=== PATIENT | female | born 1960 | race Caucasian/White ===

== ENCOUNTER 2019-10-26 10:58 | Observation (INO) | payer MEDICARE, SELFPAY ==
[2019-10-26] VITALS (11 sets, daily range): BP systolic 95–115; BP diastolic 45–60; PULSE 48–70; RESP 16; TEMP 36.4–37.1; O2SAT 93–100; BMI 25.0; BMI 28.7
--- NOTE | ~2019-10-26 | XR_ITS ---
EXAMINATION: XR chest 2V DATE: 10/26/2019 11:29 INDICATION: Transient alteration of awareness TECHNIQUE: AP and lateral views of the chest are obtained. COMPARISON: None available FINDINGS: The lungs are free of acute opacities. There is no pleural effusion or pneumothorax. The ca rdiomediastinal silhouette is normal. There is thoracic dextroscoliosis. Spinal fixation rods are not ed. Cholecystectomy clips are present in the right upper quadrant. IMPRESSION: 1. No acute cardiopulmonary abnormality. Reviewed, dictated and finalized at location A. INTELLIGENCE OFFICER
--- NOTE | ~2019-10-26 | CT_ITS ---
EXAMINATION: CT brain wo con EXAM DATE: 10/26/2019 11:47 INDICATION: Syncope. Somnolence. TECHNIQUE: Spiral CT of the head was performed without contrast. Axial, coronal and sagittal images were reviewed. The dose-length product (DLP) for this examination was 529.67 mGy-cm. The exposure w as tailored according to patient size, and iterative reconstruction (ASIR) was used as additional dos e reduction technique. Comparison is made to prior examination from 08/06/2019. FINDINGS: There is no acute intraparenchymal hemorrhage. No evidence of intraparenchymal brain mass lesion. No evidence of acute infarction. There is no mass effect or midline shift. The ventricles are normal in size. There are no extra-axial collections. There are no acute calvarial fractures. T he orbits are unremarkable. Soft tissue is unremarkable. The visualized sinuses and mastoid air taylor ls are well aerated. IMPRESSION: 1. Unremarkable head CT examination. Reviewed, dictated and finalized at location B. ERIOLOGIST FISHERY
--- NOTE | ~2019-10-26 | MR_ITS ---
EXAMINATION: MR brain/brain stem wo/w con EXAM DATE: 10/27/2019 12:58 INDICATION: Syncope. TECHNIQUE: Magnetic resonance imaging (MRI) of the brain/brain stem obtained without contrast. Sagit anny T1, axial diffusion, gradient echo (T2*), T1, T2, FLAIR sequences obtained. Patient was then inj ected with 10 cc intravenous Multihance contrast. Axial and coronal postcontrast T1 weighted sequence s obtained. There is no prior study for comparison. FINDINGS: There are no areas of restricted diffusion to suggest acute infarction. There is no acute hemorrhage seen on the T2*, a hemosiderin sensitive sequence. No intraparenchymal brain mass. The ve ntricles are normal in size. There are no extra-axial collections. Flow voids are seen in the cereb ral arteries on the T2-weighted sequences consistent with their expected patency. The orbits are unr emarkable. Soft tissue is unremarkable. There are no areas of abnormal enhancement on the postcont rast images. IMPRESSION: 1. Normal brain MRI examination. Reviewed, dictated and finalized at location B. OFILM CLERK
--- NOTE | 2019-10-26 11:05 | ECG_ITS ---
Measurements Intervals [place] Rate: 46 P: 29 MN: 172 QRS: 2 QRSD: 86 T: 52 QT: 452 QTc: 397 Interpretive Statements SINUS BRADYCARDIA INCOMPLETE RIGHT BUNDLE BRANCH BLOCK BASELINE ARTIFACT- I, II ABNORMAL ECG Electronically Signed On 10-26-2019 11:14:32 SWATCH CHECKER by Eleazar Hayes D.O.
[2019-10-26 11:25] LABS: Glucose Point of Care 117 (65-105)
[2019-10-26 11:29] LABS: Basophils Absolute Auto 0.1 K/mm3 (0.0-0.1); Basophils Percent Auto 1.2 % (0.2-1.2); Eosinophils Absolute Auto 0.1 K/mm3 (0-0.3); Eosinophils Percent Auto 0.8 % (0-4.4); Hematocrit 39.6 % (37.0-47.0); Immature Granulocyte Absolute 0.01 K/mm3 (0.00-0.031); Immature Granulocyte Percent A 0.2 % (0-0.5); Lymphocytes Absolute Auto 3.68 K/mm3 (0.9-3.2); Mean Corpuscular HGB Conc 32.8 g/dl (32-36); Mean Corpuscular Hemoglobin 32.7 pg (26-34); Mean Corpuscular Volume 99.5 fl (80-100); Mean Platelet Volume 9.5 fl (7.4-10.4); Monocytes Absolute Auto 0.5 K/mm3 (0.1-0.6); Monocytes Percent Auto 7.7 % (2.6-8.5); Neutrophils Absolute Auto 1.7 K/mm3 (1.3-6.7); Neutrophils Percent Auto 28.1 % (45.5-73.1); Platelet Count Result 345 k/mm3 (150-375); Red Blood Count 3.98 M/mm3 (4.2-5.4); Red Cell Distribution Width 17.8 % (11.5-14.5); White Blood Count 5.9 K/mm3 (4.5-10.0)
[2019-10-26 11:39] LABS: Partial Thromboplastin Time 24.9 SECONDS (22.3-36.8); Prothrombin Time 12.7 Seconds (11.1-14.7)
[2019-10-26] MEDS: LACTATED RINGERS 1,000 ML 999 ML IV CONT (11:39)
[2019-10-26 11:40] LABS: Lactic Acid Reflex 1.2 mmol/L (0.7-2.1)
[2019-10-26 11:43] LABS: Alanine Aminotransferase 66 U/L (4-35); Alkaline Phosphatase 82 U/L (38-126); Aspartate Amino Transferase 55 U/L (14-36); Bilirubin,Total 0.4 mg/dL (0.2-1.3); Blood Urea Nitrogen 19 mg/dL (7-17); CRP 0.6 mg/dL (<1.0); Calcium 9.2 mg/dL (8.4-10.2); Carbon Dioxide 23 mmol/L (22-30); Chloride 103 mmol/L (98-107); Estimated Glomerular Filt Rate > 60; Glucose 128 mg/dL (65-105); Lipase 63 U/L (23-300); Potassium 3.8 mmol/L (3.4-5.0); Sodium 139 mmol/L (137-145)
--- NOTE | 2019-10-26 11:49 | ED.AMS ---
HPI - Altered Mental Status General Chief Complaint: Syncope Stated Complaint: syncope Time Seen by Provider: 10/26/19 11:01 Source: patient Mode of arrival: ambulatory Limitations: no limitations History of Present Illness HPI narrative: Patient is a 59-year-old female who presents with family for evaluation of syncopal episode that occurred just prior to arrival patient was sitting when she became very pale and noted that she did not feel well and sustained a syncopal episode patient's POA notes that she has had several syncopal episodes in the recent past has had Holter monitoring evaluation with no attributable cause patient on arrival is resting comfortably lying in the position in no distress patient had short episode of syncope with twitching. Patient with history of Down syndrome hypothyroidism and is a limited historian due to clinical condition Related Data Home Medications Medication Instructions Recorded Confirmed alendronate 70 mg tablet 70 mg PO WEEKLY 07/17/19 09/07/19 calcium carbonate 600 mg(1,500 1 tablet PO DAILY 07/17/19 09/07/19 mg)-vitamin D3 800 unit chewable tablet fluoxetine 10 mg capsule 10 mg PO HS 07/17/19 09/07/19 Alive 1 tablet PO DAILY 09/01/19 09/07/19 ferrous sulfate [iron] 325 mg PO DAILY 09/01/19 09/07/19 Allergies Allergy/AdvReac Type Severity Reaction Status Date / Time Penicillins Allergy Severe RASH Verified 09/18/19 13:31 CHILD--NEVER GIVEN AGAIN amoxicillin AdvReac Unknown Upset Verified 09/18/19 13:31 Stomach Review of Systems Review of Systems: ROS unobtainable: unobtainable due to mental condition PMFSH Past Medical History Medical History Anemia Depression Down syndrome, unspecified Hypothyroidism, unspecified Pterygium of right eye 1997 Scoliosis Surgical History Surgical History History of back surgery Rods in spine Hx of cholecystectomy 2009 Family History Family History Father Hypertension Parkinson disease Mother Hypertension Alzheimer disease Skin cancer Other Diabetes mellitus Social History Social History Smoking status: Never smoker Alcohol intake: never Substance use: never Gender identity (if verbalized by the patient): Female Spiritual care concerns: Yes Agree to blood products: Yes Exam Narrative: Exam Narrative: GENERAL: Well-appearing, well-nourished, and in no acute distress. HEAD: Normocephalic, small contusion to the forehead EYES: PERRLA and EOMI. ENT: Nares clear, no rhinorrhea or epistaxis. Mucous membranes moist. Oropharynx without tonsillar hypertrophy exudate or other lesions. NECK: Supple. No adenopathy or masses. CHEST: Clear to auscultation. No respiratory distress. No wheezes rales or rhonchi HEART: Regular rate and rhythm. No murmur heard. Normal peripheral pulses. ABDOMEN: Soft, nontender, nondistended EXTREMITIES: Normal range of motion. No edema. SKIN: Warm, dry, no rash. NEURO: No focal deficits. Alert and oriented to person PSYCH: Normal mood and affect. Course Course Emergency Course: Patient in the room at this time resting comfortably aware of case findings treatment plan and diagnosis POA in the room as well who is also aware and agreeing to the plan for the patient to be observed in hospital overnight Consultations Consultation #1: Patient case discussed with hospitalist and primary care who agreed to observing the patient Date: 10/26/19 Vital Signs Vital signs: Vital Signs Temperature 97.5 F L 10/26/19 11:03 Pulse Rate 48 L 10/26/19 11:03 Respiratory Rate 16 10/26/19 11:03 Blood Pressure 101/50 L 10/26/19 11:03 Pulse Oximetry 98 10/26/19 11:03 Temperature 97.5 F L 10/26/19 11:03 Pulse Rate 70
[2019-10-26 11:51] LABS: Troponin I < 0.012 ng/mL (0.000-0.034)
[2019-10-26 11:52] LABS: Troponin I < 0.012 ng/mL (0.000-0.034)
[2019-10-26 13:03] LABS: Add Urine Microscopic? YES; Appearance Urine Clear (Clear); Bacteria Urine 1+ /hpf; Bilirubin Urine Negative (Negative); Blood Urine Negative (Negative); Color Urine Yellow (Yellow); Glucose Urine UA Negative (Negative); Ketones Urine Negative (Negative); Leukocyte Esterase Ur Trace LEU/UL (Negative); Mucus Urine Rare /lpf; Nitrate Urine Negative (Negative); Protein Urine Negative (Negative); Specific Grav Ur 1.031 (1.001-1.035); Squamous Epithelial Cell Urine Few /hpf (Few)
[2019-10-26 14:49] LABS: Troponin I < 0.012 ng/mL (0.000-0.034)
[2019-10-26] MEDS: LACTATED RINGERS 1,000 ML 125 ML IV CONT ×2 (15:24→22:07)
--- NOTE | 2019-10-26 15:41 | ADMGEN ---
This patient, Talia Fernandez, was admitted to [facility] Surg Room 325-01. Patient/family oriented to hospital policies and general routines including ID bracelet, bed and alarms, visiting hours, pain management, procedures, bathroom and other care routines, personal items, smoking policy, room service/diet, and visiting hours. Valuables list has been completed. Information on how to activate the Rapid Response Team has been discussed. Patient/Family are encouraged to report perceived risks to care and to ask questions if they do not understand what they are told or what they should do.
--- NOTE | 2019-10-26 17:06 | PM.IMHP ---
H&P: HPI History of Present Illness Chief complaint: syncope Narrative: Talia Fernandez is a 59 year old female Who has had multiple episodes of syncope. According to her sister she has had a syncopal episode at least every other week. The patient had been on a monitor at 1 time. The POA stated that the patient had been here and July and had a Holter monitor at that time. The patient lives with her power defense attorney which is her sister and [id number]. The patient stated that she did not hit her head this time but the incident occurred just prior to arrival to the emergency room. She was sitting when she bring him very pale and noted she did feel very well. The patient stated that her stomach was upset. She does have Down syndrome and is able to communicate with me. I did call her power defense attorney which is her sister to get information. Jessie is her power defense attorney. The patient stated that she can now smile she had a frown earlier today. I am assuming that she had a facial droop. However the sister did not notice this. The sister told me that the patient had dental work done yesterday and had numbing medicine to that area. They are not sure if this is what she was referring to. Her blood sugar was 128. Her pulse was down to 48. The patient stated that her stomach felt funny during this time as well. She could not exactly describe a but said it was upset. The patient was given IV Tylenol and IV fluids in the emergency room. Date of service 10/26/[address] was unremarkable as well. Review of Systems Review of Systems: Narrative: The patient denies any fever chills. She stated that her she had a frown earlier but now she is able to smile. She had some dental work performed yesterday and had numbing medicine to her lower jaw and was not sure if it was from that or something different. She is not complaining any deficits at this time. She stated her stomach was upset earlier. She does have a history of down syndrome. All systems reviewed & are unremarkable except as noted in HPI and below Constitutional: Constitutional: Reports as per HPI and Reports no additional constitutional complaints Eyes: Eyes: Reports as per HPI and Reports no additional eye complaints ENT: Reports system reviewed and no additional complaints, except as documented and Reports Normal hearing present Cardiovascular: Cardiovascular: Reports no additional cardiovascular complaints Respiratory: Respiratory: Reports as per HPI and Reports no additional respiratory complaints Gastrointestinal: Gastrointestinal: Reports as per HPI and Reports no additional gastrointestinal complaints Genitourinary: Genitourinary: Reports no additional female genitourinary complaints Musculoskeletal: Musculoskeletal: Reports no additional musculoskeletal complaints Integumentary/Breasts: Skin/Breast: Reports system reviewed and no additional complaints, except as docu Neurologic: Reports system reviewed and no additional complaints, except as documented and Reports Normal hearing present Psychiatric: Psychiatric: Reports no additional psychiatric complaints and Reports as per HPI Endocrine: Endocrine: Reports no additional endocrine complaints Hematologic/Lymphatic: Hematologic/Lymphatic: Reports no additional hematologic/lymphatic complaints Allergic/Immunologic: Allergic/Immunologic: Reports no additional allergic/immunologic complaints [facility] Past Medical History Medical History (Updated 10/26/19 @ 17:58 by Kathe Franklin NP) Anemia Benign uterine neoplasm extracted Depression Down syndrome, unspecified Hypothyroidism, unspecified Pterygium of right eye 1997 Scoliosis Surgical History Surgical History History of back surgery Rods in spine Hx of cholecystectomy 2009 Family History Family History Father Hypertension Parkinson diseas
[2019-10-26 17:47] LABS: Troponin I < 0.012 ng/mL (0.000-0.034)
[2019-10-26] MEDS: FLUOXETINE HCL 10 MG CAPSULE PO (21:53)
[2019-10-26] MEDS: FAMOTIDINE 20 MG/2 ML VIAL IV PUSH (22:21)
[2019-10-27] VITALS (12 sets, daily range): BP systolic 93–134; BP diastolic 45–66; PULSE 56–81; RESP 16–20; TEMP 36.4–36.8; O2SAT 96–100; BMI 28.7
[2019-10-27] MEDS: LACTATED RINGERS 1,000 ML 125 ML IV CONT ×2 (04:58→15:46)
[2019-10-27 06:04] LABS: Basophils Absolute Auto 0.1 K/mm3 (0.0-0.1); Basophils Percent Auto 0.9 % (0.2-1.2); Eosinophils Percent Auto 0.5 % (0-4.4); Hematocrit 33.9 % (37.0-47.0); Hemoglobin 11.1 g/dL (12.0-15.0); Immature Granulocyte Absolute 0.01 K/mm3 (0.00-0.031); Immature Granulocyte Percent A 0.2 % (0-0.5); Lymphocytes Absolute Auto 1.73 K/mm3 (0.9-3.2); Lymphocytes Percent Auto 31.4 % (18.3-44.2); Mean Corpuscular HGB Conc 32.7 g/dl (32-36); Mean Corpuscular Hemoglobin 32.6 pg (26-34); Mean Corpuscular Volume 99.4 fl (80-100); Mean Platelet Volume 9.3 fl (7.4-10.4); Monocytes Absolute Auto 0.5 K/mm3 (0.1-0.6); Monocytes Percent Auto 9.3 % (2.6-8.5); Neutrophils Absolute Auto 3.2 K/mm3 (1.3-6.7); Neutrophils Percent Auto 57.7 % (45.5-73.1); Platelet Count Result 250 k/mm3 (150-375); Red Blood Count 3.41 M/mm3 (4.2-5.4); Red Cell Distribution Width 17.9 % (11.5-14.5); White Blood Count 5.5 K/mm3 (4.5-10.0)
[2019-10-27] MEDS: LEVOTHYROXINE SODIUM 100 MCG TABLET PO (06:06)
[2019-10-27 07:30] LABS: Alanine Aminotransferase 48 U/L (4-35); Albumin Level 3.2 g/dL (3.5-5.1); Alkaline Phosphatase 68 U/L (38-126); Aspartate Amino Transferase 37 U/L (14-36); Bilirubin,Total 0.3 mg/dL (0.2-1.3); Blood Urea Nitrogen 13 mg/dL (7-17); Calcium 8.5 mg/dL (8.4-10.2); Carbon Dioxide 26 mmol/L (22-30); Chloride 104 mmol/L (98-107); Estimated Glomerular Filt Rate > 60; Glucose 88 mg/dL (65-105); Magnesium 1.8 mg/dL (1.6-2.3); Sodium 139 mmol/L (137-145)
[2019-10-27 07:39] LABS: Thyroid Stimulating Hormone Reflex 0.323 uIU/mL (0.465-4.68)
[2019-10-27] MEDS: FAMOTIDINE 20 MG/2 ML VIAL IV PUSH ×2 (09:15→20:23)
[2019-10-27] MEDS: FERROUS SULFATE 324 MG TABLET PO (09:15)
[2019-10-27 10:05] LABS: Free T4 Free Thyroxine Reflex 1.49 ng/dL (0.78-2.19)
[2019-10-27 11:28] LABS: Total Triiodothyronine (T3) 4.65 NG/ML (0.97-1.69)
--- NOTE | 2019-10-27 12:16 | PC.NURSE ---
Pt went to MRI at this time.
--- NOTE | 2019-10-27 13:38 | PM.IMPN ---
Progress Note: A&P Assessment and Plan (1) Syncope and collapse: Code(s): R55 - Syncope and collapse Status: Acute Assessment and Plan: The patient has been having syncopal episodes since June 2019. Etiology not entirely clear although could be symptomatic bradycardia and/or hypotension. Her BP runs soft at baseline. CT and MRI brain are unremarkable. Carotid dopplers from 08/07/19 unremarkable. Echocardiogram 08/07/19 showed normal systolic and diastolic function, EF 60-65% with mild tricuspid valve regurgitation, no pulmonary hypertension. No pathologic cardiac arrhythmias demonstrated on recent Holter monitor 09/02/19. Cardiology consulted -appreciate Dr Stallings's recommendations. Noted his plan for loop recorder implantation which would be reasonable to do on outpatient basis. Neurology consulted - appreciate input. Anticipate possible discharge tomorrow after neurology consultation and EEG with short interval cardiology follow up after discharge for loop recorder. (2) Bradycardia: Code(s): R00.1 - Bradycardia, unspecified Status: Chronic Assessment and Plan: Appreciate cardiology input, see above. (3) Hypothyroidism, unspecified: Qualifiers: Hypothyroidism type: unspecified Qualified Code(s): E03.9 - Hypothyroidism, unspecified Code(s): E03.9 - Hypothyroidism, unspecified Status: Chronic Assessment and Plan: Continue levothyroxine. (4) Anemia: Qualifiers: Anemia type: unspecified type Qualified Code(s): D64.9 - Anemia, unspecified Code(s): D64.9 - Anemia, unspecified Status: Chronic Assessment and Plan: H&H low but stable. No evidence of acute bleeding. Continue with her home iron supplementation and monitor CBC. (5) Depression: Qualifiers: Depression Type: unspecified Qualified Code(s): F32.9 - Major depressive disorder, single episode, unspecified Code(s): F32.9 - Major depressive disorder, single episode, unspecified Status: Chronic Assessment and Plan: Stable maintained on home Prozac. (6) UTI (urinary tract infection): Code(s): N39.0 - Urinary tract infection, site not specified Status: Acute Assessment and Plan: Urine culture grew > 100,000 E coli. Start Rocephin. Subjective Date/time seen: 10/27/19 13:15 Interval history: Ms. Fernandez is a pleasant 59yo female with Down's syndrome admitted for evaluation of recurring syncopal episodes. She has been having syncopal events over the last 4 months, now almost once weekly. She tells me she does not feel dizzy prior to losing consciousness. She denies feeling dizzy when she stands up from a sitting position, and family at the bedside notes that a few of these events have occurred while she is standing, not when changing positions. Today she feels well and denies dizziness, chest pain, shortness of breath. She has tolerated some oral intake without nausea or vomiting. Review of Systems Review of Systems: Narrative: Twelve systems were reviewed with pertinent positives and negatives as per HPI. Exam Narrative: Exam Narrative: General: Female sitting up in bedside chair in no acute distress, visiting with family at bedside. Neuro: No focal neurological deficits. Speech is at her baseline. She is alert and knows she is in the hospital because she has been passing out. Upper and lower extremity strength is symmetric bilaterally. Cranial nerves II-XII grossly intact as tested; no facial droop. Able to follow commands during exam. HEENT: Normocephalic, EOMI, oral mucosa moist. Cardiovascular: Rate is bradycardic, rhythm is regular. No murmur, rub, or gallop appreciated. HR 48 at time of exam. Respiratory: Lungs clear to auscultation all field
--- NOTE | 2019-10-27 14:00 | NEURO_ITS ---
TEST: ELECTROENCEPHALOGRAM DIAGNOSIS: SYNCOPE PATIENT NUMBER: [id number] EEG NUMBER: [id number] RECORDING DATE: 10/27/19 CLINICAL HISTORY: Patient is mentally challenged. Family states she keeps passing out. CONDITION OF RECORDING: Awake, drowsy and sleep EEG DESCRIPTION: Basic resting occipital frequency consists of small amount of fairly well organized low voltage 8-10hz alpha mixed with low voltage 15-18hz beta. During drowsiness low voltage beta activity is seen diffusely mixed with waxing and waning posterior alpha rhythms. Bilateral symmetrical sleep activity is seen during sleep. Hyperventilation and photic stimulation were not done. Multiple movement artifacts are seen throughout the tracing. Nonparoxysmal. Nonfocal. Nonlateralizing. IMPRESSION: No significant abnormalities noted. MTDD
--- NOTE | 2019-10-27 14:45 | PM.CNCAR ---
Assessment and Plan Additional Plan This is a 59-year-old female who has Down syndrome. She also has recurrent syncopal episodes for the last 3 months that are unexplained I would recommend arranging for implantation of a loop recorder for definitive assessment of this patient's cardiac rhythm. These episodes have been recurrent and problematic resulting in falls and 1 episode with some trauma to the head. It is therefore of some importance to try to establish a cardiac rhythm diagnosis if there is one. As a matter of logistical reality this is not going to happen anymore on Wednesday afternoon. If she remains in the hospital I will be happy to arrange to do this as an inpatient on Wednesday. If she is discharged I will be happy to arrange this to be done as an outpatient in the near future. Maximino Stallings MD [facility] History of Present Illness History of Present Illness Consult date/time: Date of service: 10/27/19 14:45 Reason For Visit: syncope Narrative: This is a pleasant 59-year-old lady who has a diagnosis of Down's syndrome and I am seeing her at the request of the hospitalist service because of syncopal episodes. The patient and her family who are with her in the room indicate she has began to experience syncopal episodes in June of 2019. These episodes have occurred under variety of circumstances 1 occurred while she was standing at the bathroom sink. She was not straining at stool she was brushing her teeth. She had another episode while she was at a dentist's office in the waiting room. She had an episode at home subsequently and the episode yesterday occurred while she was also at home simply seated in a chair. She states that 2 of these episodes occurred with some lightheadedness and dizziness prior to losing consciousness at the other episodes she simply remembers awakening on the floor. The family indicates that she seems to wake up relatively quickly. There different opinions on that 1 of the family members indicates she is typically a awake with less than 30 seconds. Another woman indicates she typically takes 2-3 minutes to read recover are responsiveness. In any event she has no history of any cardiac problems prior to this. Her ECGs in the hospital now and last time she was here for this in in June and July were unremarkable. She does have some episodes of sinus bradycardia but no problematic pauses or AV node dysfunction. The patient wore a Holter monitor recently as an outpatient for 24 hours to investigate this and there were no pathologic arrhythmias identified. An echocardiogram was done during a previous admission which did not show any structural cardiac pathology. In this setting up seeing her in consultation and she has no other complaints at this time she was a short time ago sent down to Radiology for a MRI of cerebrum the results of that are not available at the time of this dictation. A neurology consult has also been requested that I do not believe has yet occurred. Review of Systems Constitutional: Constitutional: Reports no additional constitutional complaints Eyes: Eyes: Reports no additional eye complaints ENT: Reports system reviewed and no additional complaints, except as documented Cardiovascular: Cardiovascular: Reports no additional cardiovascular complaints Respiratory: Respiratory: Reports no additional respiratory complaints Gastrointestinal: Gastrointestinal: Reports no additional gastrointestinal complaints Musculoskeletal: Musculoskeletal: Reports no additional musculoskeletal complaints Integumentary/Breasts: Skin/Breast: Reports system reviewed and no additional complaints, except as docu Neurologic: Comments: Syncopal episodes as per HPI Psychiatric: Psychiatric: Reports no additional psychiatric complaints Endocrine: Endocrine: Reports no additional endocrine complaints Allergic/Immunologic: Allergic/Immunologic: Reports no additional allergic/immunologic complai
--- NOTE | 2019-10-27 16:58 | CONS_ITS ---
DATE OF CONSULTATION: HISTORY: A 59 years old right-handed female has been admitted to [facility] through the emergency room for the complaint of syncopal episode to the point that she is having episode once every other week. The patient had been here in July with a Holter monitor at that time. She gave no history of trauma. Reportedly, she was sitting when she became very pale, at that time my stomach was upset. She does have ongoing history of Down syndrome, but is able to communicate otherwise. Recently, she had a dental work done and was complaining of numbing of the mouth. At the time of initial evaluation, her blood sugar was 128 with a pulse of 48. She was complaining of her stomach feeling funny. 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 SOCIAL HISTORY: She is a never smoker, never drinker. MEDICATIONS: She was taking multiple medications, particularly 1. Fluoxetine 10 mg daily. 2. Levothyroxine 100 mcg daily. 3. Multivitamin 1 tablet daily. 4. Calcium supplements. ALLERGIES: SHE IS ALLERGIC TO PENICILLIN AND AMOXICILLIN. PHYSICAL EXAMINATION: VITAL SIGNS: Evaluation revealed her to be afebrile with pulse of 48, respirations 16,, pulse ox 98%. GENERAL: She was awake, alert, cooperative, in no obvious acute distress. HEENT: Head was normocephalic with no cranial bruit. Ear, nose, throat examination was normal. NECK: Supple with no cervical bruit. No thyromegaly. No lymphadenopathy. HEART: Regular murmur. LUNGS: Clear to auscultation with no crepitations. ABDOMEN: Soft and no organomegaly. NEUROLOGICAL: She was awake, alert, follows the instruction fairly well. Pupils round, regular. [place] of vision full. Extraocular movements full. Face symmetrical. Tongue midline. Motor examination revealed her to have decreased strength in upper and lower extremities with sluggish reflexes and downgoing plantar responses. Evaluation up until now revealed troponin less than 0.012. AST 55, ALT 66, alkaline phos 82, albumin 4.0 with total bilirubin of 0.4. UA negative. CT of the head was negative. Chest x-ray was negative. IMPRESSION: Syncopal episode. Considering the diagnosis, I will obtain the EEG to rule out the possibility of the seizure. In the meantime, cardiac evaluation will be done. ANKUSH CARPENTER M.D. LANDSCAPER HELPER LANDSCAPER HELPER D I MT: Sapna MYERS
[2019-10-27] MEDS: FLUOXETINE HCL 10 MG CAPSULE PO (20:23)
[2019-10-28] VITALS: PULSE 58
[2019-10-28] MEDS: LACTATED RINGERS 1,000 ML 125 ML IV CONT ×2 (00:34→10:26)
[2019-10-28 04:00] VITALS: PULSE 58
[2019-10-28 06:00] VITALS: BP 115/62; PULSE 74; RESP 16; TEMP 36.8; O2SAT 100
[2019-10-28] MEDS: LEVOTHYROXINE SODIUM 100 MCG TABLET PO (06:17)
[2019-10-28 06:27] LABS: Hematocrit 32.9 % (37.0-47.0); Hemoglobin 10.7 g/dL (12.0-15.0); Mean Corpuscular HGB Conc 32.5 g/dl (32-36); Mean Corpuscular Hemoglobin 32.7 pg (26-34); Mean Corpuscular Volume 100.6 fl (80-100); Mean Platelet Volume 9.7 fl (7.4-10.4); Platelet Count Result 237 k/mm3 (150-375); Red Blood Count 3.27 M/mm3 (4.2-5.4); Red Cell Distribution Width 17.8 % (11.5-14.5); White Blood Count 4.5 K/mm3 (4.5-10.0)
[2019-10-28 06:37] LABS: Blood Urea Nitrogen 12 mg/dL (7-17); Calcium 8.7 mg/dL (8.4-10.2); Carbon Dioxide 31 mmol/L (22-30); Chloride 104 mmol/L (98-107); Estimated Glomerular Filt Rate > 60; Glucose 85 mg/dL (65-105); Magnesium 1.9 mg/dL (1.6-2.3); Phosphorus 3.8 mg/dL (2.5-4.5); Potassium 4.1 mmol/L (3.4-5.0); Sodium 139 mmol/L (137-145)
[2019-10-28 08:00] VITALS: PULSE 61
[2019-10-28] MEDS: FERROUS SULFATE 324 MG TABLET PO (08:30)
[2019-10-28] MEDS: FAMOTIDINE 20 MG/2 ML VIAL IV PUSH (08:31)
--- NOTE | 2019-10-28 09:14 | ECHO_ITS ---
Patient Info Name: Talia Fernandez Age: 59 years : 1960 Gender: Female Ht: 57 in Wt: 123 lbs BSA: 1.52 m2 HR: 89 bpm BP: 115 / 62 mmHg Technical Quality: Good Exam Date: 10/28/2019 10:34 AM Exam Location: [facility] Exam Room: [facility] [place] Patient Status: Inpatient Admit Date: 10/26/2019 Staff Ordering Physician: Richard Putnam MD Therapeutic Sales Specialist: Hiral Omalley RDCS Attending Provider: Linda Hawkins PA-C Exam Type: CA echo limited w bubble study Study Info Limited two-dimensional transthoracic echocardiogram is performed with agitated saline. Contrast/Agitated Saline Contrast/Ag. Saline: Agitated Saline Amount: 20.00 ml Existing IV Access: Yes IV Access Condition: patent with no signs of infiltration Summary 1. Limited contrast study in the apical 4 chamber view demonstrates no evidence of intracardiac shunting. 2. Atrial septum is visually intact and agitated saline contrast demonstrates no evidence of intracardiac shunt. Atrial Septum Atrial septum is visually intact and agitated saline contrast demonstrates no evidence of intracardiac shunt. Report Signatures
[2019-10-28 12:00] VITALS: PULSE 62
--- NOTE | 2019-10-28 12:09 | WPDNEUROPN ---
Progress Note: A&P Assessment and Plan (1) UTI (urinary tract infection): Code(s): N39.0 - Urinary tract infection, site not specified Status: Acute (2) Osteoporosis: Code(s): M81.0 - Age-related osteoporosis without current pathological fracture Status: Acute (3) Syncope: Code(s): R55 - Syncope and collapse Status: Acute (4) Bradycardia: Code(s): R00.1 - Bradycardia, unspecified Status: Chronic (5) Hypothyroidism, unspecified: Qualifiers: Hypothyroidism type: unspecified Qualified Code(s): E03.9 - Hypothyroidism, unspecified Code(s): E03.9 - Hypothyroidism, unspecified Status: Chronic (6) Anemia: Qualifiers: Anemia type: unspecified type Qualified Code(s): D64.9 - Anemia, unspecified Code(s): D64.9 - Anemia, unspecified Status: Chronic (7) Down syndrome, unspecified: Code(s): Q90.9 - Down syndrome, unspecified Status: Chronic (8) Thickened endometrium: Code(s): R93.89 - Abnormal findings on diagnostic imaging of other specified body structures Status: Acute (9) Bradycardia: Code(s): R00.1 - Bradycardia, unspecified Status: Acute (10) Syncope: Qualifiers: Syncope type: unspecified Qualified Code(s): R55 - Syncope and collapse Code(s): R55 - Syncope and collapse Status: Acute (11) Thickened endometrium: Code(s): R93.89 - Abnormal findings on diagnostic imaging of other specified body structures Status: Acute (12) DVT prophylaxis: Code(s): Z29.9 - Encounter for prophylactic measures, unspecified Status: Acute (13) Syncope: Qualifiers: Syncope type: unspecified Qualified Code(s): R55 - Syncope and collapse Code(s): R55 - Syncope and collapse Status: Acute (14) Dehydration: Code(s): E86.0 - Dehydration Status: Acute (15) Bradycardia, sinus: Code(s): R00.1 - Bradycardia, unspecified Status: Acute (16) Colitis: Code(s): K52.9 - Noninfective gastroenteritis and colitis, unspecified Status: Acute (17) Depression: Qualifiers: Depression Type: unspecified Qualified Code(s): F32.9 - Major depressive disorder, single episode, unspecified Code(s): F32.9 - Major depressive disorder, single episode, unspecified Status: Chronic (18) Syncope and collapse: Code(s): R55 - Syncope and collapse Status: Acute (19) Current moderate episode of major depressive disorder: Code(s): F32.1 - Major depressive disorder, single episode, moderate Status: Chronic (20) Moderate intellectual disabilities: Code(s): F71 - Moderate intellectual disabilities Status: Chronic (21) Other intermediate accountant (current) drug therapy: Code(s): Z79.899 - Other intermediate accountant (current) drug therapy Status: Chronic Additional Plan syncope awaiting echocardiogram thouh had normal in the past Review of Systems Review of Systems: All systems reviewed & are unremarkable except as noted in HPI and below Exam Const: General: cooperative, healthy appearing, comfortable, no acute distress, alert and awake Nutritional Appearance: average body habitus Orientation/consciousness: oriented to person, oriented to place and oriented to time Limitations: language barrier (none) Eyes: General: appearance normal, both eyes and all related structures EOM: EOMs intact bilaterally Direct Ophthalmoscopy: normal light reflex and no photophobia Neck: Neck: full ROM Resp: Effort & Inspection: normal respiratory effort Auscultation: clear to auscultation bilaterally Cardio: Rate: regular rate Rhythm: regular rhythm GI: Auscultation: normal bowel sounds Skin: General skin exam: no rashes or lesions noted Neuro: General: patient oriented x3 and moves all extremities Cranial nerves: Yes CN's II-XII intact bilaterally Speech: normal speech
[2019-10-28 14:00] VITALS: BP 102/45; PULSE 78; RESP 18; TEMP 36.6; O2SAT 98
--- NOTE | 2019-10-28 15:19 | PC.NURSE ---
Spoke with Dr. Putnam @0900 and he said to have the patient follow up in 6 weeks with him once discharged.
--- NOTE | 2019-10-28 16:47 | PM.DS ---
DS: Diagnosis Admitting Diagnosis Admitting Diagnosis: Syncope and collapse Discharge Diagnosis (1) Syncope and collapse: Code(s): R55 - Syncope and collapse Status: Acute Assessment and Plan: Date of Service 10/28/19 Ms. Fernandez is a pleasant 59yo F with Down syndrome who presented to the ED for evaluation of syncopal episodes. She lives with her sister, Jessie. Jessie notes that since June or July 2019, Talia had been passing out about once every other week. Patient is noted to have sinus bradycardia and its possible her symptoms could be related to this. She did recently wear a Holter monitor as an outpatient and those records were reviewed. Cardiology was consulted and she was seen by Dr Stallings, who recommends implantation of loop recorder. His office will contact Jessie next week to arrange this. Neurology was also consulted and she was seen by Dr Putnam. MRI brain was normal. She recently had carotid dopplers 08/07/19 which were unremarkable. She also recently had an echocardiogram at that time which was unremarkable aside from mild tricuspid regurgitation. EEG was performed but results not available prior to discharge, Dr Putnam's office number provided at discharge. Her blood pressures run low at baseline and she was treated with IV hydration. Jessie notes that she does her best to make sure Talia drinks plenty of fluids. Urine culture grew E coli and she was treated with IV rocephin, then discharged with oral levaquin to complete the course. She recently underwent D&C by Dr Vines in August 2018 due to abnormal endometrial thickening noted on imaging. Jessie reports he removed a fibroid or polyp that was benign. Ms. Fernandez felt well during this admission and offered no complaints. She denied dizziness, headaches, or weakness. She was hemodynamically stable for discharge 10/28/19 with plans to follow up with Dr Stallings and Dr Antony. Consultations: Cardiology - Dr Stallings Neurology - Dr Putnam The patient has been having syncopal episodes since June 2019. Etiology not entirely clear although could be symptomatic bradycardia and/or hypotension. Her BP runs soft at baseline. CT and MRI brain are unremarkable. Carotid dopplers from 08/07/19 unremarkable. Echocardiogram 08/07/19 showed normal systolic and diastolic function, EF 60-65% with mild tricuspid valve regurgitation, no pulmonary hypertension. No pathologic cardiac arrhythmias demonstrated on recent Holter monitor 09/02/19. Cardiology consulted -appreciate Dr Stallings's recommendations. Noted his plan for loop recorder implantation which would be reasonable to do on outpatient basis. Neurology consulted - agrees with cardiac workup. (2) Bradycardia: Code(s): R00.1 - Bradycardia, unspecified Status: Chronic Assessment and Plan: HRs intermittently into the 40s on telemetry here. Follow up with Dr Stallings's office. (3) Hypothyroidism, unspecified: Qualifiers: Hypothyroidism type: unspecified Qualified Code(s): E03.9 - Hypothyroidism, unspecified Code(s): E03.9 - Hypothyroidism, unspecified Status: Chronic Assessment and Plan: Continue levothyroxine. Follow up with PCP for thyroid monitoring. (4) Anemia: Qualifiers: Anemia type: unspecified type Qualified Code(s): D64.9 - Anemia, unspecified Code(s): D64.9 - Anemia, unspecified Status: Chronic Assessment and Plan: H&H low but stable. No evidence of acute bleeding. Continue with her home iron supplementation. (5) Depression: Qualifiers: Depression Type: unspecified Qualified Code(s): F32.9 - Major depressive disorder, single episode, unspecified Code(s): F32.9 - Major depressive disorder, single episode, un
--- NOTE | 2019-10-28 17:04 | PC.NURSE ---
Patient dischagred @1545 via wheel chair and POV. IV line removed, discharge instructions discussed with patient and family and verbalized understanding. Patient transported home by family.
--- NOTE | 2019-11-02 14:09 | PC.NURSE ---
Blood cx is negative.
== END 2019-10-28 15:45 | disposition home or self-care (01) ==
LOC: ANHED 14:26 → ANH3MEDSUR 14:33
PROVIDERS: Emergency Medicine Emergency Medical Services; Nurse Practitioner; Physician Assistant; Admitting Provider Hospitalist; Emergency Provider Emergency Medicine; PCP Family Medicine; Visit Provider Family Medicine
DX: R55 Syncope and collapse (principal); R00.1 Bradycardia, unspecified; N39.0 Urinary tract infection, site not specified; B96.20 Unspecified Escherichia coli [E. coli] as the cause of diseases classified elsewhere; E86.0 Dehydration; I95.9 Hypotension, unspecified; Q90.9 Down syndrome, unspecified; F71 Moderate intellectual disabilities; F32.1 Major depressive disorder, single episode, moderate; I07.1 Rheumatic tricuspid insufficiency; E03.9 Hypothyroidism, unspecified; D64.9 Anemia, unspecified; M81.0 Age-related osteoporosis without current pathological fracture; K52.9 Noninfective gastroenteritis and colitis, unspecified; R93.89 Abnormal findings on diagnostic imaging of other specified body structures; Z79.899 Other long term (current) drug therapy; Z88.0 Allergy status to penicillin
CPT/HCPCS: 36415; 51701; 70450; 70553; 71046; 80048; 80053; 81001; 83605; 83690; 83735; 84100; 84439; 84443; 84480; 84484; 85025; 85027; 85610; 85730; 86140; 87040; 87077; 87086; 87088; 87186; 93005; 93308; 95816; 96361; 96365; 96375; 96376; 97161; 97165; 99285; A9270; A9577; G0378; J0696; J7120

== ENCOUNTER 2020-01-08 05:39 | Outpatient (CLI) | payer MEDICARE, SELFPAY ==
[2020-01-08 15:31] LABS: SARS-CoV-2 RNA PCR Negative
== END 2020-01-08 05:40 | disposition home or self-care (01) ==
LOC: ANHCOVIDDT 05:40
PROVIDERS: PCP Family Medicine; Visit Provider Specialist
DX: Z01.818 Encounter for other preprocedural examination (principal); Z11.59 Encounter for screening for other viral diseases
CPT/HCPCS: 87635; U0003

== ENCOUNTER 2020-01-10 05:13 | Day surgery (SDC) | payer MEDICARE, SELFPAY ==
[2020-01-08 16:32] VITALS: BMI 24.7
--- NOTE | 2020-01-10 07:40 | SUR.PREOP ---
ARRIVES TO [facility] 5 VIA WC W/ SISTER/POA AT SIDE FOR SCHEDULED LOOP RECORDER INSERTION. AWAKE AND ALERT. DENIES CP OR SOB. PT. HAS DOWN SYNDROME. ORIENTED TO ROOM, PLAN OF CARE, PROCEDURE. VS OBTAINED, PRE PROCEDURE INFORMATION VERIFIED, CONSENT SIGNED. WILL MONITOR.
[2020-01-10 07:45] VITALS: BP 122/61; PULSE 66; RESP 16; TEMP 36.5; O2SAT 100
--- NOTE | 2020-01-10 08:44 | PM.IMHP ---
H&P: HPI History of Present Illness Chief complaint: Syncope Narrative: Talia Fernandez is a 59 year old female admitted today electively as an outpatient for implantation of a cardiac rhythm loop recorder. The patient was seen in consultation in the end of September of this year in the hospital with episodes of syncope. The patient began to experience syncopal episodes in June of 2019. The episodes have occurred over a variety of circumstances. One occurred while she was standing at the bathroom sink. She was not straining at stool she was brushing her teeth. Another episode occurred while she was at the dentist office in the waiting room. She had an episode at home subsequently just simply seated in a chair relaxing at her home. Two of these episodes were preceded by symptoms of lightheadedness and dizziness prior to losing consciousness. He other episodes she simply remembers awakening on the floor. The family indicated that after these episodes she wakes up relatively quickly. There were different opinions about the time of loss of conscious was varying between 30 seconds and 2-3 minutes. The electrocardiograms in the hospital were unremarkable. She had Holter monitors done as an outpatient which showed no pathological arrhythmias. An echocardiogram done while she was in the hospital did not demonstrate any structural cardiac pathology. In this situation I recommended implanting a loop recorder to determine if there was a cardiac arrhythmic basis to these episodes. The procedure was scheduled for a couple of months ago and was canceled because of Coronavirus pandemic. Elective procedures are now occurring again so she is presenting today to get this procedure performed. Review of Systems Constitutional: Constitutional: Reports no additional constitutional complaints Eyes: Eyes: Reports no additional eye complaints ENT: Reports system reviewed and no additional complaints, except as documented Cardiovascular: Cardiovascular: Reports as per HPI Respiratory: Respiratory: Reports no additional respiratory complaints Gastrointestinal: Gastrointestinal: Reports no additional gastrointestinal complaints Genitourinary: Genitourinary: Reports no additional female genitourinary complaints Musculoskeletal: Musculoskeletal: Reports no additional musculoskeletal complaints Integumentary/Breasts: Skin/Breast: Reports system reviewed and no additional complaints, except as docu Neurologic: Reports as per HPI Psychiatric: Psychiatric: Reports no additional psychiatric complaints [facility], [facility] Social History Social History Social History: patient's power real estate associate attorney is her sister Jessie and [id number]. She lives with the power real estate associate attorney and the brother allJunior Roman stated that she does not want chest compressions or CPR but while opted patient needed. Smoking status: Never smoker Alcohol intake: never Substance use: never Gender identity (if verbalized by the patient): Female Spiritual care concerns: No Agree to blood products: Yes Meds Home Medications and Allergies Home Medications Medication Instructions Recorded Confirmed Type calcium carbonate 600 mg(1,500 1 tablet PO DAILY 07/17/19 01/08/20 History mg)-vitamin D3 800 unit chewable tablet ferrous sulfate [iron] 325 mg PO DAILY 09/01/19 01/08/20 History levothyroxine 100 mcg tablet 100 mcg PO DAILY #90 tablet 09/04/19 01/08/20 Rx acetaminophen [Tylenol Extra 500 mg PO Q6H PRN #30 tablet 09/07/19 01/08/20 Rx Strength] multivitamin 1 tab-cap PO DAILY 10/26/19 01/08/20 History fluoxetine 10 mg capsule 10 mg PO HS #90 cap 11/10/19 01/08/20 Rx alendronate 70 mg tablet 70 mg PO WEEKLY #13 tablet 12/13/19 01/08/20 Rx Lacto.acidophilus-Bif.animalis 1 cap PO DAILY 01/08/20 01/08/20 History [Daily Probiotic] Allergies Allergy/AdvReac Type Severity Reaction Status Date / Time Penicillins Allergy
--- NOTE | 2020-01-10 09:23 | SUR.PHASEII ---
INSERTION OF BIOTRONIC BIOMONITOR COMPLETED IN ROOM NITRATE OPERATOR 5. TOLERATED WELL. BRIELLE HASSAN, AT BEDSIDE WITH EQUIPMENT. BANDAID DRESSING C/D/I TO L. UPPER CHEST. NO BLEEDING OR SWELLING NOTED. SITE NONTENDER. WILL MONITOR.
--- NOTE | 2020-01-10 09:24 | P.PCNCC_ITS ---
Cardiac Cath Procedure Note Date of procedure:: 01/10/20 Performing physician:: Maximino Stallings MD Indication:: Recurrent syncope Brief clinical history:: 59-year-old female with a history of intermittent syncope for approximately 6 months. Outpatient Holter monitoring and echocardiography have been unremarkable. She has had recurrent syncope the etiology of which has been undetermined. For further evaluation of her cardiac rhythm implantation of a loop recorder has been recommended Procedure Procedure performed:: Implantation of Biotronik bio monitor loop recorder Sedation/Medication given:: No sedation given Access site:: Left anterior chest wall Estimated blood loss:: Minimal Procedure note:: The patient was brought to the cardiac catheterization lab holding area in the postabsorptive state where the left anterior chest wall was prepped and draped in the usual fashion. A delaney was made in the 3rd intercostal space. An area of anesthesia was then created using 30 cc of 1% lidocaine at the injection site and inferior to this at the site of the device to be implanted. After this the Biotronik bio monitor device was implanted. The puncture was made using the supplied puncture blade in the kit and the insertion tool was used to deploy the device inferior to the marked uneventfully. Telemetry was then checked using the analyzer with excellent ECG quality. The procedure was uneventful the we dressed with a drop of bio glue and a Band-Aid. Findings:: As above Conclusion:: Successful implantation of Biotronik bio monitor loop recorder for evaluation of ongoing recurrent syncope in this 59-year-old patient Maximino Stallings MD [facility]
--- NOTE | 2020-01-10 10:00 | SUR.PHASEII ---
EQUIPMENT INSTRUCTIONS AND SETUP HAVE BEEN EXPLAINED TO PT AND POA BY BRIELLE HASSAN. PT. DRESSED AND READY FOR DISCHARGE HOME. L. UPPER CHEST LARGE BANDAID DRESSING C/D/I. NO BLEEDING OR SWELLING NOTED. FULL SENSATION AND MOVEMENT PRESENT TO L. HAND. PT. REPORTS NO PAIN OR SOB. NO IV PLACED THIS VISIT. REVIEWED DISCHARGE INSTRUCTIONS AND FOLLOW UP CARE W/ PT. AND HER POASUPA. QUESTIONS ANSWERED AND BOTH VERBALIZED UNDERSTANDING OF SUCH. DISCHARGED HOME, OUT VIA WC W/ POA AT SIDE TO OP SURGICAL ENTRANCE. HOME VIA PRIVATE VEHICLE WITH ALL PERSONAL BELONGINGS AND CANE, AND DISCHARGE PACKET. NO DISTRESS NOTED. VOICES NO C/O.
== END 2020-01-10 10:15 | disposition home or self-care (01) ==
PROVIDERS: PCP Family Medicine; Visit Provider Specialist
PROC: (CPT 33285; principal; 2020-01-10 08:30)
DX: R55 Syncope and collapse (principal)
CPT/HCPCS: 33285; 87635; C1764; C9803; U0003

== ENCOUNTER 2020-05-07 16:54 | Outpatient (CLI) | payer MEDICARE, SELFPAY ==
--- NOTE | ~2020-05-07 | MM_ITS ---
EXAMINATION: MM screening elly BI w treva HISTORY: Screening TECHNIQUE: Craniocaudal and mediolateral oblique 3-D tomosynthesis images were obtained and synthetic 2-D images were generated. CAD analysis was submitted and interpreted. COMPARISON: Comparison to multiple prior studies sequentially, with oldest reviewed study dated 12/2011. BREAST PARENCHYMAL COMPOSITION: There are scattered areas of fibroglandular density. FINDINGS: There is no evidence of suspicious mass, calcification, or architectural distortion to sugg est malignancy in either breast. There has been no suspicious interval change. IMPRESSION: 1. No mammographic evidence of malignancy. 2. Recommend routine screening mammography in one year. BI-RADS Category 1: Negative Reviewed, dictated and finalized at location A.
== END 2020-05-07 16:55 | disposition home or self-care (01) ==
PROVIDERS: PCP Family Medicine; Visit Provider Physician Assistant
DX: Z12.31 Encounter for screening mammogram for malignant neoplasm of breast (principal); M81.0 Age-related osteoporosis without current pathological fracture
CPT/HCPCS: 77063; 77067

== ENCOUNTER 2020-06-18 13:03 | Outpatient (CLI) | payer MEDICARE, SELFPAY ==
--- NOTE | ~2020-06-18 | DEXA_ITS ---
Bone Density Report Name: Talia Fernandez Age: 59 Sex: Female Ethnicity: White Date of : 1960 Indication: osteopenia; postmenopausal Referring Provider: Lev Reeves Study: Bone densitometry was performed. Exam Date: June 18, 2020 Accession number: [id number] Bone Density: Region BMD T-score Z-score Classification AP Spine (L3, L4) 1.243 1.3 2.7 Normal Femoral Neck (Left) 0.541 -2.8 -1.5 Osteoporosis Total Hip (Left) 0.670 -2.2 -1.3 Osteopenia Total Hip Bilateral Avg 0.674 -2.2 -1.3 Osteopenia Femoral Neck (Right) 0.595 -2.3 -1.1 Osteopenia Total Hip (Right) 0.678 -2.2 -1.3 Osteopenia World Health Organization criteria for BMD impression classify patients as: Normal (T-score at or above -1.0), Osteopenia (T-score between -1.0 and -2.5), or Osteoporosis (T-score at or below -2.5). 10-year Fracture Risk: FRAX not reported because: Some T-score for Spine Total or Hip Total or Femoral Neck at or below -2.5 Previous Exams: Region Exam Age BMD T-score BMD Change BMD Change Date g/cm2 vs Baseline vs Previous AP Spine(L3, L4) 06/18/2020 59 1.243 1.3 0.196(18.7%)* 0.196(18.7%)* 09/11/2014 54 1.047 -0.5 Total Hip(Left) 06/18/2020 59 0.670 -2.2 -0.023(-3.3%) -0.023(-3.3%) 09/11/2014 54 0.692 -2.0 Total Hip(Right) 06/18/2020 59 0.678 -2.2 -0.008(-1.2%) -0.008(-1.2%) 09/11/2014 54 0.686 -2.1 *Denotes significance at 95% confidence level, LSC for AP Spine = 0.022 g/cm2, LSC for Total Hip = 0.027 g/cm2 Clinical Information Provided by Patient: Has used the following medications: Vitamin D, Calcium Patient maximum height was 59.5 Menopause Age: 46 No regular weight bearing exercise Onset of menses at age 14 Number of children 0 Impression: The patient has osteoporosis, based on the Left Femoral Neck T-score. No significant bone loss was observed. Discussion: INCREASED RISK OF FRACTURE. BONE DENSITY IS UNDESIRABLY LOW AT ONE OR MORE SKELETAL SITES, CONSISTENT WITH POSTMENOPAUSAL OSTEOPOROSIS. This patient's lowest T-score meets the World Health Organization's (WHO) criteria for osteoporosis at one or more sites (T-score -2.5 or below). In untreated patients, the risk of osteoporotic fracture increases approximately two-fold for each 1.0 SD decrease in T-score. Low bone density is not the only risk factor for fracture; also consider factors such as patient's age, frailty or poor health, risk of falling, risk of injury, previous
== END 2020-06-18 13:04 | disposition home or self-care (01) ==
PROVIDERS: PCP Family Medicine; Visit Provider Physician Assistant
DX: Z12.31 Encounter for screening mammogram for malignant neoplasm of breast (principal); M81.0 Age-related osteoporosis without current pathological fracture; M85.852 Other specified disorders of bone density and structure, left thigh; M85.851 Other specified disorders of bone density and structure, right thigh
CPT/HCPCS: 77080

== ENCOUNTER 2020-11-05 14:46 | Outpatient (CLI) | payer MEDICARE, SELFPAY | END 2020-11-05 14:47 | disposition home or self-care (01) | LOC: ANHCOVIDVC 14:46 | PROVIDERS: PCP Family Medicine | DX: Z23 Encounter for immunization (principal) | CPT/HCPCS: 0001A; 91300 ==

== ENCOUNTER 2020-11-26 14:32 | Outpatient (CLI) | payer MEDICARE, SELFPAY | END 2020-11-26 14:33 | disposition home or self-care (01) | LOC: ANHCOVIDVC 14:32 | PROVIDERS: PCP Family Medicine | DX: Z23 Encounter for immunization (principal) | CPT/HCPCS: 0002A; 91300 ==

== ENCOUNTER 2021-05-09 14:20 | Outpatient (CLI) | payer MEDICARE, SELFPAY ==
--- NOTE | ~2021-05-09 | MM_ITS ---
EXAMINATION: MM screening elly BI w treva HISTORY: Screening mammogram TECHNIQUE: Craniocaudal and mediolateral oblique 3-D tomosynthesis images were obtained and synthetic 2-D images were generated. CAD analysis was submitted and interpreted. COMPARISON: 05/07/2020, 11/26/2017, 11/24/2016 bilateral digital screening mammogram examinations BREAST PARENCHYMAL COMPOSITION: There are scattered areas of fibroglandular density. FINDINGS: An electronic situated within the left breast. There is no evidence of suspicious mass, campbell cification, or architectural distortion to suggest malignancy in either breast. There has been no anayeli picious interval change. IMPRESSION: 1. No mammographic evidence of malignancy. 2. Recommend routine screening mammography in one year. BI-RADS Category 1: Negative Reviewed, dictated and finalized at location A.
== END 2021-05-09 14:21 | disposition home or self-care (01) ==
LOC: ANHIMG 14:22
PROVIDERS: PCP Family Medicine; Visit Provider Family Medicine
DX: Z12.31 Encounter for screening mammogram for malignant neoplasm of breast (principal)
CPT/HCPCS: 77063; 77067

== ENCOUNTER 2022-01-31 20:14 | Emergency (ER) | payer MEDICARE, SELFPAY ==
--- NOTE | ~2022-01-31 | XR_ITS ---
EXAM: XR elbow LT min 3V DATE: 01/31/2022 20:46 HISTORY: fall, arm pain . COMPARISON: None available. FINDINGS: Decreased mineralization. Severe joint space narrowing. Osteophytosis and sclerosis at the elbow. Moderate remodeling. Moderate volume joint fluid. IMPRESSION: No acute osseous finding the left elbow. Severe degenerative changes in the left elbow willam int. Reviewed, dictated and finalized at location K. IMPRESSION: No acute osseous finding the left elbow. Severe degenerative change s in the left elbow joint.
[2022-01-31 20:17] VITALS: BP 107/45; PULSE 71; RESP 18; TEMP 36.7; O2SAT 98
[2022-01-31] MEDS: IBUPROFEN 600 MG TABLET PO (21:17)
--- NOTE | 2022-01-31 21:20 | ED.UPPEXIN ---
HPI - Extremity Injury (Upper) General Chief Complaint: Extremity Injury, Upper Stated Complaint: fell getting out of van, left arm Time Seen by Provider: 01/31/22 21:03 Source: patient and family Mode of arrival: ambulatory Limitations: no limitations History of Present Illness HPI narrative: This is a 61-year-old female that presents to the emergency department after a fall today with left elbow pain. Patient was trying to get into a vehicle and lost her principal electrical engineer on the door handle. Reports falling backwards and hitting her left elbow on the ground. Reports pain and decreased range of motion in the elbow. Denies hitting her head, loss of consciousness, other injuries, numbness, or weakness. Related Data Home Medications Medication Instructions Recorded Confirmed calcium carbonate 600 mg-vitamin 1 tablet PO DAILY 07/17/19 08/08/21 D3 20 mcg (800 unit) chewable tablet (Caltrate 600 plus D) multivitamin 1 tab-cap PO DAILY 10/26/19 08/08/21 Lactobacillus 1 cap PO DAILY 01/08/20 08/08/21 acidophilus-Bifidobac.animalis 2.5 billion cell capsule (Daily Probiotic) Allergies Allergy/AdvReac Type Severity Reaction Status Date / Time Penicillins Allergy Severe RASH Verified 01/31/22 20:20 CHILD--NEVER GIVEN AGAIN amoxicillin AdvReac Unknown Upset Verified 01/31/22 20:20 Stomach Review of Systems Review of Systems: CONSTITUTIONAL: Denies fever MUSCULOSKELETAL: Reports joint pain, and myalgia. NEUROLOGIC: Denies numbness, or weakness. All systems reviewed & are unremarkable except as noted in HPI and below PMFSH Past Medical History Medical History (Updated 01/31/22 @ 22:05 by Carmen Chavez PA-C) Anemia Benign uterine neoplasm extracted Depression Down syndrome, unspecified Hypothyroidism, unspecified Pterygium of right eye 1997 Scoliosis Surgical History Surgical History History of back surgery Rods in spine Hx of cholecystectomy 2009 S/P D&C (status post dilation and curettage) by Dr Vines 09/07/19 due to thickened endometrial lining noted on imaging. Family History Family History Father Hypertension Parkinson disease Hx of CABG Mother Skin cancer Alzheimer disease Hypertension Sibling Anemia Sibling Diabetes mellitus Social History Social History (Updated 08/11/21 @ 11:45 by Emperatriz Sainz [facility]) Social History: patient's power city attorney is her sister Jessie and [id number]. She lives with the power city attorney and the brother all. Jessie stated that she does not want chest compressions or CPR but while opted patient needed. Alcohol intake: never Substance use: never Gender identity (if verbalized by the patient): Female Spiritual care concerns: No Agree to blood products: Yes Exam Narrative: GENERAL: Well-appearing, well-nourished, and in no acute distress. HEAD: Normocephalic, atraumatic. EYES: EOMI. CHEST: Clear to auscultation. No respiratory distress. No wheezes rales or rhonchi HEART: Regular rate and rhythm. No murmur heard. Normal peripheral pulses. EXTREMITIES: Normal range of motion, except decreased active ROM in the left elbow due to pain. No edema or obvious deformity. Normal radial pulses. Normal sensation SKIN: Warm, dry, no rash. NEURO: No focal deficits. Alert and oriented x3. Normal gait PSYCH: Normal mood and affect Course Vital Signs Vital signs: Vital Signs Temperature 98.1 F 01/31/22 20:17 Pulse Rate 71 01/31/22 20:17 Respiratory Rate 18 01/31/22 20:17 Blood Pressure 107/45 L 01/31/22 20:17 Pulse Oximetry 98 01/31/22 20:17 Oxygen Delivery Room Air 01/31/22 20:17 Temperature 98.1 F 01/31/22 20:17 Pulse Rate 71 01/31/22 20:17 Respiratory Rate 18 01/31/22 20:17 Blood Pressure 107/45 L 01/31/22 20:17 Pulse Oximetry 98 01/31/22 20:17 Oxygen Delivery Room Air 06
== END 2022-01-31 22:18 | disposition home or self-care (01) ==
PROVIDERS: Emergency Provider Emergency Medicine; PCP Family Medicine
DX: S59.902A Unspecified injury of left elbow, initial encounter (principal); Q90.9 Down syndrome, unspecified; E03.9 Hypothyroidism, unspecified; Z86.2 Personal history of diseases of the blood and blood-forming organs and certain disorders involving the immune mechanism; W18.39XA Other fall on same level, initial encounter
CPT/HCPCS: 73080; 99283; A4565; A9270